=== PATIENT | female | born 2000 | race Caucasian/White ===

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

== ENCOUNTER 2020-01-16 22:41 | Emergency (ER) | payer MEDICAID ==
--- NOTE | 2020-01-16 23:19 | ER Document Report ---
ED Medical Screen (RME) - General Stated Complaint: LEFT ANKLE PAIN Time Seen by Provider: 01/16/20 23:14 Notes: Patient is a 19-year-old female that comes to the emergency department for chief complaint of pain to her left foot and ankle. She states this started over the past day or so, she noticed this while walking, she states she has a lot of pain while walking on it and this significantly increased over the past 24 hours. She denies specific injury. She reports some swelling. She has been taking ibuprofen for this. She denies , diagnosed medical history, or any daily medications. TRAVEL OUTSIDE OF THE [place] IN LAST 30 DAYS: No - Related Data Allergies/Adverse Reactions: No Known Allergies Allergy (Unverified 01/16/20 23:07) Past Medical History - Social History Chew tobacco use (# tins/day): No Frequency of alcohol use: None Drug Abuse: None Physical Exam - Vital signs Vitals: Temp Pulse Resp BP Pulse Ox 98.2 F 80 18 116/85 100 01/16/20 22:45 01/16/20 22:45 01/16/20 22:45 01/16/20 22:45 01/16/20 22:45 - Extremities General lower extremity: Other - Tenderness with range of motion of the left ankle (moving her ankle laterally), very tender with palpation over the left lateral dorsal foot. No obvious swelling. No signs of injury. Normal cap refill and sensation, normal dorsalis pedis. Normal leg, knee, hip exam. Course - Re-evaluation Re-evalutation: I have greeted and performed a rapid initial assessment of this patient. A comprehensive ED assessment and evaluation of the patient, analysis of test results and completion of the medical decision making process will be conducted by additional ED providers. - Vital Signs Vital signs: Temp Pulse Resp BP Pulse Ox 98.2 F 80 18 116/85 100 01/16/20 22:45 01/16/20 22:45 01/16/20 22:45 01/16/20 22:45 01/16/20 22:45
--- NOTE | 2020-01-16 23:49 | RADIOLOGY REPORT (SQ) ---
EXAM DESCRIPTION: XR ANKLE 3 OR MORE VIEWS COMPLETED DATE/TME: 01/16/2020 23:17 CLINICAL HISTORY: 19 years, Female, pain COMPARISON: None. NUMBER OF VIEWS: 3 TECHNIQUE: 3 view left ankle LIMITATIONS: None. FINDINGS: Negative for acute fracture or dislocation. Soft tissues are unremarkable IMPRESSION: Negative exam copyright 2011 [email or web address]- All Rights Reserved
--- NOTE | 2020-01-16 23:53 | RADIOLOGY REPORT (SQ) ---
EXAM DESCRIPTION: Three views of the left foot CLINICAL HISTORY: 19 years Female, pain, swelling COMPARISON: None. FINDINGS: Alignment is anatomic. Bone mineralization is normal. Soft tissues are within normal limits. No radiopaque foreign body. No fracture. No erosions or periostitis. IMPRESSION: Unremarkable radiographs of the left foot.
--- NOTE | 2020-01-17 00:47 | ER Document Report ---
HPI - HPI Time Seen by Provider: 01/16/20 23:14 Pain Level: 4 Context: Patient is a 19-year-old female that comes to the emergency department for chief complaint of pain to her left foot and ankle. She states this started over the past day or so, she noticed this while walking, she states she has a lot of pain while walking on it and this significantly increased over the past 24 hours. She denies specific injury. She reports some swelling. She has been taking ib uprofen for this. She denies , diagnosed medical history, or any daily medications. - REPRODUCTIVE Reproductive: DENIES: : Past Medical History - General Information source: Patient - Social History Smoking Status: Never Smoker Chew tobacco use (# tins/day): No Frequency of alcohol use: None Drug Abuse: None Lives with: Family Family History: Reviewed & Not Pertinent Patient has suicidal ideation: No Patient has homicidal ideation: No Vertical Provider Document - CONSTITUTIONAL General Appearance: WD/WN, No Apparent Distress - INFECTION CONTROL TRAVEL OUTSIDE OF THE [place] IN LAST 30 DAYS: No - HEENT HEENT: Atraumatic, Normocephalic - NECK Neck: Normal Inspection - RESPIRATORY Respiratory: Breath Sounds Normal, No Respiratory Distress - CARDIOVASCULAR Cardiovascular: Regular Rate, Regular Rhythm - GI/ABDOMEN Gastrointestinal: Abdomen Soft, Abdomen Non-Tender. negative: Abdomen Tender - BACK Back: Normal Inspection - MUSCULOSKELETAL/EXTREMETIES Musculoskeletal/Extremeties: MAEW, FROM, Tender - Tenderness with range of motion of the left ankle (moving her ankle laterally), very tender with palpation over the left lateral dorsal foot. No obvious swelling. No signs of injury. Normal cap refill and sensation, normal dorsalis pedis. Normal leg, knee, hip exam. - NEURO Level of Consciousness: Awake, Alert, Appropriate Motor/Sensory: No Motor Deficit, No Sensory Deficit - DERM Integumentary: Warm, Dry, No Rash Course - Re-evaluation Re-evalutation: Patient walks with a limp, has mild soft tissue swelling over the dorsal aspect of the left foot. No signs of trauma, no other complaints otherwise. X-rays of the foot and ankle are both negative. Discussed with patient. I suspect this is a strain/sprain with subsequent swelling, she was provided with Dexter wrap, crutches, recommendations, work release. Discussed follow-up and return precautions. Patient states appreciation and agreement. Stable at time of discharge. - Vital Signs Vital signs: Temp Pulse Resp BP Pulse Ox 98.2 F 80 18 116/85 100 01/16/20 22:45 01/16/20 22:45 01/16/20 22:45 01/16/20 22:45 01/16/20 22:45 Procedures - Immobilization Left foot/ankle Pre-Proc Neuro Vasc Exam: Normal Immobilizer type: Dexter wrap Performed by: PCT Post-Proc Neuro Vasc Exam: Normal Alignment checked and good: Yes Discharge - Discharge Clinical Impression: Left foot pain Condition: Stable Disposition: HOME, SELF-CARE Additional Instructions: Based on your negative x-ray, your symptoms, and your exam I think this is a ligament injury causing soft tissue swelling and pain. I recommend the crutches for the next 2 to 3 days, elevate whenever possible, ice 3-4 times a day for 10 to 15 minutes, and take anti-inflammatories. You can take 800 mg of ibuprofen every 8 hours or alternatively take 500 mg of naproxen every 12 hours. You can take 1000 mg of Tylenol every 6 hours as needed additionally if needed. Symptoms should simply resolve with time. Follow-up with primary care for additional management. Return for any concerning symptoms including severe worsening swelling or pain, developing redness, fever, or any other concerning symptoms. Forms: Return to Work
[2020-01-17 01:20] VITALS: BP 118/80
== END 2020-01-17 00:50 | disposition home or self-care (01) ==
LOC: ER 22:41
DX: M79.672 Pain in left foot (principal); M25.572 Pain in left ankle and joints of left foot; M79.89 Other specified soft tissue disorders
CPT/HCPCS: 99283